=== PATIENT | male | born 1955 | race Caucasian/White ===

== ENCOUNTER 2021-12-10 18:30 | Observation (INO) | payer BC ==
[2021-12-10] MEDS ORDERED: Sodium Chloride 0.9% 10 ML Syringe FLUSH PRN (18:57)
[2021-12-10] MEDS ORDERED: Acetaminophen/HYDROcodone 325-5 MG Tab PO ONE (18:58)
[2021-12-10] MEDS: Sodium Chloride 0.9% 1,000 ML IV SCH ×2 (19:12→22:14)
[2021-12-10] MEDS ORDERED: cefTRIAXone 2 GM Vial IVPUSH ONE ×2 (20:50→21:57)
[2021-12-10] MEDS ORDERED: Sodium Chloride 0.9% 1,000 ML IV SCH (21:00)
[2021-12-10] MEDS ORDERED: Metoprolol Tartrate 25 MG Tab PO ONE (21:56)
[2021-12-10] MEDS ORDERED: Acetaminophen 325 MG Tab PO PRN (22:55)
[2021-12-10] MEDS ORDERED: Ondansetron 4 MG Tab.DIS PO PRN (22:55)
[2021-12-11] MEDS: Sodium Chloride 0.9% 1,000 ML IV SCH ×3 (01:21→09:35)
[2021-12-11] MEDS ORDERED: Sodium Chloride 0.9% 1,000 ML IV SCH (09:00)
[2021-12-11] MEDS ORDERED: amLODIPine 10 MG Tab PO ONE ×2 (09:30→12:00)
[2021-12-11] MEDS ORDERED: Sodium Chloride 0.45% 1,000 ML IV SCH (09:45)
[2021-12-11] MEDS: Acetaminophen/HYDROcodone 325-5 MG Tab PO PRN ×2 (16:03→20:04)
[2021-12-11] MEDS ORDERED: cefTRIAXone 1 GM Vial IVPUSH ONE ×2 (16:07→20:00)
[2021-12-11] MEDS ORDERED: amLODIPine 10 MG Tab PO SCH (20:00)
[2021-12-12] MEDS: Acetaminophen/HYDROcodone 325-5 MG Tab PO PRN (02:35)
[2021-12-12] MEDS ORDERED: Non-Formulary Medication 1 Each (Amlodipine Besylate [Amlodipine Besylate] 5 MG Tablet) PO SCH (08:00)
== END 2021-12-12 09:49 | disposition home or self-care (01) ==
LOC: CC.ED 18:30 → CC.MS 21:13 → UNDOADMOB 21:15 → CC.ED 21:15
PROVIDERS: ADMIT Physician Assistant; ATTEND Physician Assistant
DX: N32.0 Bladder-neck obstruction (principal); N17.9 Acute kidney failure, unspecified; R97.20 Elevated prostate specific antigen [PSA]; N30.91 Cystitis, unspecified with hematuria; N13.30 Unspecified hydronephrosis; K57.30 Diverticulosis of large intestine without perforation or abscess without bleeding; I15.1 Hypertension secondary to other renal disorders; N28.89 Other specified disorders of kidney and ureter; K31.4 Gastric diverticulum; Z79.899 Other long term (current) drug therapy
CPT/HCPCS: 36415; 74176; 80048; 80053; 83735; 85025; 86140; 87086; 93005; 96374; 96376; 99217; 99220; 99225; 99285-25; A9270-GY; G0378; J0696; J7030

== ENCOUNTER → 2022-10-06 | Day surgery (SDC) | payer BC ==
[~2022-10-06] MED LIST: Ketamine 200 MG/20 ML MDV ONE; Lactated Ringers 1,000 ML IV SCH; Lidocaine 1% with EPINEPHrine 1:100,000 20 ML MDV SUBCUT ONE; Lidocaine 2% 20 ML MDV ONE; Propofol 200 MG/20 ML SDV ONE; fentaNYL 50 MCG/ML SDV ONE
== END ==
LOC: CC.SDS 07:41
PROVIDERS: ATTEND Family Medicine
DX: Z12.11 Encounter for screening for malignant neoplasm of colon (principal); K21.9 Gastro-esophageal reflux disease without esophagitis; D17.0 Benign lipomatous neoplasm of skin and subcutaneous tissue of head, face and neck; K57.30 Diverticulosis of large intestine without perforation or abscess without bleeding; K63.89 Other specified diseases of intestine; D23.39 Other benign neoplasm of skin of other parts of face; I12.9 Hypertensive chronic kidney disease with stage 1 through stage 4 chronic kidney disease, or unspecified chronic kidney disease; N18.9 Chronic kidney disease, unspecified; N40.0 Benign prostatic hyperplasia without lower urinary tract symptoms; Z79.899 Other long term (current) drug therapy; Z90.49 Acquired absence of other specified parts of digestive tract; Z98.890 Other specified postprocedural states
CPT/HCPCS: 87081; J2704; J3010; J7120